=== PATIENT | male | born 1950 | race Asian ===

== ENCOUNTER 2019-07-07 11:01 | Inpatient (IN) | payer OTHER ==
[~2019-07-07] VITALS: Ht 177.8 cm; Wt 79.4 kg
[2019-07-07 11:07] VITALS: BP_SYST 133
--- NOTE | 2019-07-07 11:07 | NUR ---
Patient to ER bed 03 to gown for evaluation. Side rails up.
--- NOTE | 2019-07-07 11:10 | NUR ---
Patient arrived in the ED c/o hypoglycemic. Denied any chest pain or shortness of breath. Denied any fevers, nausea, vomiting, or chills. Patient is alert and oriented x4, respirations even and unlabored, speaking in full sentences, ambulating with a steady gait. VSS, pain level 4/10. at bedside. Informed of wait time. Instructed to notify ED staff for any changes in condition or worsening of symptoms. Patient verbalized understanding.
[2019-07-07] MEDS ORDERED: NACL 0.9% 1,000 ML IV ONE (11:22)
--- NOTE | 2019-07-07 11:30 | NUR ---
ER Dr. Yañez at bedside examining patient.
--- NOTE | 2019-07-07 11:39 | NUR ---
X-ray done at bedside as ordered by Dr. Yañez. Patient tolerated the procedure well.
--- NOTE | 2019-07-07 11:45 | NUR ---
Patient ambulated to the bathroom with a steady gait. Urine specimen collected. Patient tolerated the activity well.
--- NOTE | 2019-07-07 11:53 | NUR ---
ECG done at bedside as ordered by Dr. Yañez. Patient tolerated the procedure well. Report given to .
--- NOTE | 2019-07-07 12:07 | NUR ---
# 20 gauge angiocath placed to RAC. Use of asceptic technique. Opsite placed over site. Blood return noted. Blood for lab drawn from site. Flushed with 10 cc of normal saline. No evidence of infiltration noted. Patient tolerated well.
[2019-07-07 12:19] LABS: BASOPHILS % (AUTO) 0.3 % (0.0-2.0); EOSINOPHILS % (AUTO) 0.2 % (0.0-4.0); HEMATOCRIT 42.2 % (36-54); HEMOGLOBIN 13.7 g/dL (14.0-18.0); LYMPHOCYTES # (AUTO) 0.6 K/uL (1.0-5.5); LYMPHOCYTES % (AUTO) 13.1 % (20.5-51.5); MEAN CORPUSCULAR HEMOGLOBIN 29 pg (27-31); MEAN CORPUSCULAR HGB CONC 32 % (32-36); MEAN CORPUSCULAR VOLUME 88 fL (79.0-98.0); MONOCYTES # (AUTO) 0.6 K/uL (0.0-1.0); MONOCYTES % (AUTO) 13.5 % (1.7-9.3); NEUTROPHILS # (AUTO) 3.2 K/uL (1.8-7.7); NEUTROPHILS % (AUTO) 72.9 % (40.0-70.0); PLATELET COUNT (AUTO) 151 K/uL (130-430); RED BLOOD CELL COUNT(AUTO) 4.78 MIL/uL (4.2-6.2); RED CELL DISTRIBUTION WIDTH 13.5 % (9.0-15.0); WHITE BLOOD COUNT (AUTO) 4.4 K/uL (4.8-10.8)
[2019-07-07 12:46] LABS: CALCIUM 8.9 mg/dL (8.4-11.0); CREATININE 1.37 mg/dL (0.55-1.30); POTASSIUM 3.8 mmol/L (3.5-5.1)
[2019-07-07 12:50] LABS: ALBUMIN 3.8 g/dL (3.4-4.8); TOTAL BILIRUBIN 0.7 mg/dL (0.0-1.0)
[2019-07-07] MEDS ORDERED: D5NS 1,000 ML IV ONE (13:00)
[2019-07-07] MEDS ORDERED: LISI-600 PO (14:02)
[2019-07-07] MEDS ORDERED: LIP10 PO (14:02)
[2019-07-07] MEDS ORDERED: GLIP10TA PO (14:02)
[2019-07-07] MEDS ORDERED: METF1000 PO (14:02)
[2019-07-07] MEDS ORDERED: EXEN2PEN SQ (14:02)
--- NOTE | 2019-07-07 14:06 | NUR ---
Reconciled meds. Belonging's list done.
[2019-07-07] MEDS ORDERED: D5NS 1,000 ML IV SCH (14:30)
--- NOTE | 2019-07-07 15:04 | NUR ---
Called in for a bed, on tele hold.
[2019-07-07 15:36] LABS: THYROID STIMULATING HORMONE 0.13 uIu/mL (0.36-3.74)
--- NOTE | 2019-07-07 16:15 | NUR ---
Patient's IV is dislodged.
--- NOTE | 2019-07-07 17:45 | NUR ---
# 22 gauge angiocath placed to right hand. Use of asceptic technique. Opsite placed over site. Blood return noted. Blood for lab drawn from site. Flushed with 10 cc of normal saline. No evidence of infiltration noted. Patient tolerated well.
--- NOTE | 2019-07-07 18:10 | NUR ---
Patient will be admitted to care of Dr. Hussein. Admitted to Telemetry unit. Will go to room 109C. Belongings list completed. Complete and up to date summary report printed. SBAR report given to ANGELINA Mcarthur at bedside with opportunity for questions.
--- NOTE | 2019-07-07 18:15 | NUR ---
Note Pt came from ED via gurney to room. Pt ambulatory from gurney to bed. IV in left hand intact and patent. Pt denies any SOB/resp distress or pain/discomfort. Pt was oriented to room and nursing procedures/routines. Questions/concerns were answered at this time. Call light within reach. Tele unit was attached on admission to room/floor.
[2019-07-07 18:21] VITALS: BP_SYST 135
--- NOTE | 2019-07-07 19:00 | NUR ---
Note Report given to NOC RN for continuation of care. Pt ate his [facility] dinner tray sitting on side of bed. Pt ambulated to restroom with steady gait OOB. Admission assessment was completed at this time. Pt stable. Call light within reach. No needs noted at this time.
--- NOTE | 2019-07-07 19:12 | NUR ---
PAGED DOCTOR LINDSEY
--- NOTE | 2019-07-07 19:25 | NUR ---
MD DR. PORTILLO CALLED BACK MADE AWARE OF PATIENT TEMPERATURE 101.4 NEW ORDERS GIVEN NOTED AND CARRIED OUT.
[2019-07-07] MEDS ORDERED: ACETAMINOPHEN 325 MG TABLET PO PRN (19:30)
[2019-07-07 19:49] VITALS: BP_SYST 133
[2019-07-07] MEDS: D5NS 1,000 ML IV SCH (19:55)
--- NOTE | 2019-07-07 19:58 | NUR ---
IVF PATIENT STARTED ON IVF D5NS @ 75 ML/HR ORDERED. IV LINE INTACT AND PATENT. PATIENT MADE AWARE OF NEED TO COLLECT URINE SPECIMEN FOR UA C/S. TYLENOL GIVEN PER PATIENT REQUEST.
[2019-07-07] MEDS ORDERED: cefTRIAXone 1 GM VIAL ONE (21:21)
[2019-07-07] MEDS: cefTRIAXone 1 GM in D5W 50 ML IV SCH (21:46)
--- NOTE | 2019-07-07 21:46 | NUR ---
IV LINE/ATB PATIENT IV LINE ACCIDENTALLY PULLED OUT. NEW IV LINE PLACED TO LFA G#22 WITH GOOD BLOOD RETURN. ROCEPHIN 1 GM INFUSED ORDERED.
--- NOTE | 2019-07-07 23:30 | NUR ---
BLOOD SUGAR ROUTINE FINGER STICK SUGAR 102. VITAL SIGNS STABLE. NO FEVER AT THIS TIME.
[2019-07-07 23:31] VITALS: BP_SYST 99
--- NOTE | 2019-07-08 03:20 | NUR ---
BLOOD SUGAR FINGER STICK SUGAR 88. PATIENT OFFERED JUICE OR SNACK PATIENT REFUSED. IVF INFUSING.
[2019-07-08 06:24] LABS: BILIRUBIN,URINE NEGATIVE (NEGATIVE); CLARITY/URINE CLEAR (CLEAR); COLOR,URINE YELLOW (YELLOW); GLUCOSE,URINE NEGATIVE (NEGATIVE); KETONES,URINE NEGATIVE (NEGATIVE); LEUKOCYTE ESTERASE ,URINE NEGATIVE (NEGATIVE); NITRITE, URINE NEGATIVE (NEGATIVE); PH,URINE 6.5 (5.0-8.0); PROTEIN URINE NEGATIVE (NEGATIVE); UROBILINOGEN,URINE 0.2 (0.2-1.0)
[2019-07-08 06:27] LABS: BLOOD, URINE TRACE (NEGATIVE)
--- NOTE | 2019-07-08 06:55 | NUR ---
CLOSING NOTES PATIENT NEEDS ATTENDED. IVF INFUSING WITH IV LINE INTACT AND PATENT. AM BLOOD SUGAR 114.
--- NOTE | 2019-07-08 08:00 | NUR ---
Patient alert/oriented x4 ambulate with steady gait , denies any pain , blood sugar monitored, discussed to patient sign /symptom of hypoglycemia , management and verbalized understanding.
[2019-07-08 08:03] LABS: BACTERIA,URINE FEW /HPF (None Seen); WBC,URINE 0-3 /HPF (0-3)
[2019-07-08 08:09] VITALS: BP_SYST 103
[2019-07-08] MEDS: D5NS 1,000 ML IV SCH ×2 (08:24→21:25)
[2019-07-08] MEDS ORDERED: GLIP5TAB26 PO (08:30)
[2019-07-08 10:59] VITALS: BP_SYST 107
--- NOTE | 2019-07-08 12:00 | NUR ---
Patient is able to reposition self in bed and is encouraged to request assistance when needed.
[2019-07-08 15:10] VITALS: BP_SYST 114
--- NOTE | 2019-07-08 18:00 | NUR ---
NO significant changes in assessment , needs attended.
--- NOTE | 2019-07-08 19:00 | NUR ---
OPENING NOTES RECEIVED PATIENT IN BED AAO X4. BREATHING UNLABORED ON ROOM AIR. IVF INFUSING WITH IV LINE INTACT AND PATENT. BED IN LOWEST LOCKED POSITION. CALL LIGHT WITH IN REACH.
[2019-07-08] MEDS: cefTRIAXone 1 GM in D5W 50 ML IV SCH (21:21)
[2019-07-08 21:25] VITALS: BP_SYST 101
--- NOTE | 2019-07-08 21:25 | NUR ---
ATB PATIENT DUE ANTIBIOTIC INFUSING WITH IV LINE INTACT AND PATENT. VITAL SIGNS STABLE.
[2019-07-08 23:39] VITALS: BP_SYST 117
--- NOTE | 2019-07-08 23:39 | NUR ---
BLD SUGAR ROUTINE FINGER STICK SUGAR DONE 108. NO C/O PAIN. VITAL SIGNS STABLE.
--- NOTE | 2019-07-09 02:30 | NUR ---
ROUNDS NO DISTRESS NOTED. IVF INFUSING.
--- NOTE | 2019-07-09 06:59 | NUR ---
CLOSING NOTES PATIENT NEEDS ATTENDED. IVF INFUSING WITH IV LINE INTACT. AM BLOOD SUGAR 112.
--- NOTE | 2019-07-09 07:45 | NUR ---
AM NOTES: RECEIVED PATIENT IN BED AAO X4. BREATHING UNLABORED ON ROOM AIR. IVF INFUSING WITH IV LINE INTACT AND PATENT. BED IN LOWEST LOCKED POSITION. CALL LIGHT WITH IN REACH.
[2019-07-09 07:46] VITALS: BP_SYST 124
[2019-07-09 11:30] LABS: CALCIUM 8.2 mg/dL (8.4-11.0); CREATININE 1.17 mg/dL (0.55-1.30); POTASSIUM 4.2 mmol/L (3.5-5.1)
[2019-07-09 11:40] LABS: FREE T4 (FREE THYROXINE) 1.1 ng/dl (0.8-1.5)
--- NOTE | 2019-07-09 12:00 | NUR ---
blood sugar 127mg/dl no coverage needed.
[2019-07-09] MEDS ORDERED: AMOX-426 PO (12:42)
--- NOTE | 2019-07-09 14:30 | NUR ---
D/C Patient Patient given medication reconciliation form and D/C instructions. Exit Care provided. Patient verbalized understanding. MD discussed with patient the results and treatment provided. Ambulatory with steady gait for discharge to home. Patient in stable condition, ID band removed. IV catheter removed, intact and dressing applied, no active bleeding. e prescription sent to preferred pharmacy. Patient educated on pain management. All belongings sent with patient.
[2019-07-10 07:10] LABS: % FREE PSA 13.1 % (.); FREE PSA 0.17 ng/mL; PROSTATE SPECIFIC AG TOTAL 1.3 ng/mL (0.0-4.0)
--- NOTE | 2019-07-10 15:23 | NUR ---
Discharge Follow Up Phone Call Phoned patient, . Patient stated he was doing well. His was at that moment filling his Augmentin prescription. He is only taking Metformin for his DM as directed. He is checking his blood sugar twice a day, as directed. 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 No questions or concerns.
== END 2019-07-09 15:25 | disposition home or self-care (01) | DRG 637 ==
LOC: SED 11:01 → STU 15:07
PROVIDERS: ADMIT Internal Medicine Hospice and Palliative Medicine; ATTEND Internal Medicine Hospice and Palliative Medicine
DX: E11.649 Type 2 diabetes mellitus with hypoglycemia without coma (principal); G93.41 Metabolic encephalopathy; I10 Essential (primary) hypertension; Z79.84 Long term (current) use of oral hypoglycemic drugs
CPT/HCPCS: 36415; 71045; 80048; 80053; 80061; 81000-TC; 82962; 83036; 84153; 84439; 84443-TC; 84484; 85025; 86710; 87040-TC; 87086; 93005; 96360; 96361; 99285; G0378; J0696; J7042; J7060